=== PATIENT | female | born 1960 | race Caucasian/White ===

== ENCOUNTER 2018-04-06 13:06 | Day surgery (SDC) | payer BC ==
[~2018-04-06 13:06] MED LIST: ACETAMINOPHEN 1,000 MG/100 ML BTL IV ONE; CEFAZOLIN 2 Gram 2 GM/50 ML BAG IVPB ONE
[2018-04-06] MEDS ORDERED: PROPOFOL 10 MG/ML VIAL IV ONE (13:07)
[2018-04-06] MEDS ORDERED: SEVOFLURANE 250 ML INH ONE (13:07)
[2018-04-06] MEDS ORDERED: MEPERIDINE 50 MG/1 ML VIAL IVP ONE (13:07)
[2018-04-06] MEDS ORDERED: BUPIVACAINE 0.5% W/EPI MPF 30 ML VIAL IVP ONE (13:07)
[2018-04-06] MEDS ORDERED: LIDOCAINE 1% MDV (10MG/ML) 20ML VIAL SQ ONE (13:07)
[2018-04-06] MEDS ORDERED: ONDANSETRON HCL IV 4 MG/2 ML VIAL IVP ONE (13:07)
[2018-04-06] MEDS ORDERED: KETOROLAC 30 MG/ML VIAL IVP ONE (13:07)
--- NOTE | 2018-04-08 12:45 | Operative Note ---
PREOPERATIVE DIAGNOSIS: Internal derangement of the right knee. POSTOPERATIVE DIAGNOSIS: 1. Grade 3 chondromalacia of the patella. 2. Complex degenerative split tear involving the posterior horn of the medial meniscus. 3. Grade 3 chondromalacia of the medial femoral condyle. 4. Grade 3 chondromalacia of the lateral tibial plateau, moderate synovitis. PROCEDURE: 1. RIGHT KNEE ARTHROSCOPY WITH PARTIAL MEDIAL MENISCECTOMY. 2. RIGHT KNEE ARTHROSCOPY WITH LIMITED SYNOVECTOMY. 3. RIGHT KNEE ARTHROSCOPY WITH CHONDROPLASTY OF THE MEDIAL LATERAL PATELLOFEMORAL COMPARTMENTS. SURGEON: Yash Alexandre M.D. ANESTHESIA: General. PREPARATION: CHLORAPREP. INDIVIDUAL CONSIDERATION: None. PROCEDURE: The patient was taken to the Operating Room and placed supine on the operating room table. She had a successful induction with general anesthetic. Her right lower extremity was prepped and draped in the usual fashion. The patient had a superolateral inflow cannula placed. The skin was infiltrated with 0.5% Marcaine with Epinephrine prior. A large clear effusion was drained and the knee was then inflated with normal saline. An inferior medial and inferior lateral portal were made in similar fashion. The arthroscope was introduced through the inferior lateral portal up into the pouch. The patellofemoral compartment showed Grade 3 changes throughout the patella with fibrocartilage in the notch. The Grade 3 change in the patella were debrided with a shaver. There was moderate synovitis in the pouch and this was debrided out with a shaver, not so much in the gutters. Medially she had a complex degenerative split tear involving the posterior horn of the medial meniscus, this was debrided back to a stable rim with basket forceps and a shaver. There was some small Grade 3 changes far posteriorly on the femoral condyle which was smoothed. The tibial plateau had a few cracks, but nothing to debride. In the notch the cruciates were normal. The lateral compartment showed normal meniscus and normal femoral condyle, but some Grade 3 changes on the plateau which were primarily medial. These were smoothed off with a shaver. The knee was then irrigated out with saline which included floating debris. The portals are closed with samara and 20 ml of 0.5% Marcaine with Epinephrine along with 4 mg of Morphine and 80 mg of Depo-Medrol were injected into the knee as a sterile bulky compressive dressing was applied. The patient tolerated the procedures well. Needle and sponge counts were correct. The estimated blood loss was minimal and she was taken back to the Recovery Room in good condition. There were no complications. JOB NUMBER: [id number] MTDD
== END 2018-04-06 16:20 | disposition home or self-care (01) ==
LOC: SUR 13:06
PROVIDERS: ATTEND Orthopaedic Surgery
DX: S83.231A Complex tear of medial meniscus, current injury, right knee, initial encounter (principal); M22.41 Chondromalacia patellae, right knee; M94.261 Chondromalacia, right knee; E78.00 Pure hypercholesterolemia, unspecified; Z90.5 Acquired absence of kidney
CPT/HCPCS: 29881; 29875; 01400; J0690; J1885; J2405